=== PATIENT | male | born 1980 | race American Indian/Alaskan Native ===

== ENCOUNTER 2017-10-12 23:14 | Inpatient (IN) | payer SELFPAY ==
--- NOTE | 2017-10-13 05:22 | Cat Scan Report ---
FINAL REPORT EXAM: CT HEAD/BRAIN WO CON HISTORY: S/P fall with LOC TECHNIQUE: Routine axial imaging was obtained of the brain without IV contrast. FINDINGS: There is no evidence of acute stroke or hemorrhage. The ventricular system is appropriate in size and is symmetric. There are no extra-axial fluid collections. The visualized sinuses are clear. The calvarium appears intact. The mastoid air cells are well pneumatized. IMPRESSION: Within normal limits.
[2017-10-13] MEDS ORDERED: SUBLIMAZE IV ONE ×2 (08:39→09:30)
[2017-10-13] MEDS ORDERED: ZOFRAN IV ONE (08:39)
--- NOTE | 2017-10-13 08:56 | Emergency Department Report ---
HPI - General Chief Complaint: Fall Time Seen by Provider: 10/13/17 08:30 - HPI HPI: Room 6 The patient is a 37-year-old male presenting with a chief complaint of syncope. The patient states he was at [facility] with his brother when he began laughing. The patient states he awakened on the floor. The patient states his brother told him of his left Yonny down to his knees and then passed out falling backwards striking the back of his head. The brother reports the patient was only unconscious for a few seconds. The patient states when he awakened he had an occipital headache and neck stiffness addition to pain in his jaw. Patient denied ever having chest pain, shortness of breath or palpitations. The patient states the event occurred yesterday at approximately 13:00. Patient denies other complaints Location: Head, see above Duration: [See above] Quality: [See above] Severity: 03/06 Modifying factors: [see above] Context: [see above] Mode of transportation: [not driving] ED Past Medical Hx - Past Medical History Previous Medical History?: No - Surgical History Past Surgical History?: No - Family History Family history: no significant - Social History Smoking Status: Never Smoker Substance Use Type: None ED Review of Systems ROS: Stated complaint: HEAD INJURY FELL Other details as noted in HPI Respiratory: denies: shortness of breath Cardiovascular: denies: chest pain, palpitations Musculoskeletal: arthralgia, myalgia Neurological: headache Physical Exam - Physical Exam Vital Signs: Vital Signs 10/13/17 10/13/17 10/13/17 00:48 06:27 06:30 Temperature 98.4 F Pulse Rate 99 H 86 Respiratory 20 20 Rate Blood Pressure 120/81 122/85 Blood Pressure [Left] O2 Sat by Pulse 98 96 99 Oximetry 10/13/17 10/13/17 10/13/17 06:45 07:00 07:10 Temperature Pulse Rate 91 H 88 Respiratory 30 H 23 23 Rate Blood Pressure 122/85 117/79 Blood Pressure [Left] O2 Sat by Pulse 97 96 96 Oximetry 10/13/17 10/13/17 10/13/17 07:15 07:31 07:45 Temperature Pulse Rate 91 H 85 91 H Respiratory 21 18 20 Rate Blood Pressure 122/85 122/85 122/85 Blood Pressure [Left] O2 Sat by Pulse 96 84 69 L Oximetry 10/13/17 10/13/17 07:54 08:00 Temperature 98.0 F Pulse Rate 88 86 Respiratory 23 21 Rate Blood Pressure 107/64 Blood Pressure 117/79 [Left] O2 Sat by Pulse 96 94 Oximetry Physical Exam: GENERAL: The patient is well-developed well-nourished male lying on stretcher not appearing to be in acute distress. [] HEENT: Normocephalic. Subacute-appearing linear abrasion to the hospital. No active bleeding. Extraocular motions are intact. Patient has moist mucous membranes. NECK: Supple. No axial step offs. There is no adenopathy noted. CHEST/LUNGS: Clear to auscultation. There is no respiratory distress noted. HEART/CARDIOVASCULAR: Regular. There is no tachycardia. There is no gallop rub or murmur. ABDOMEN: Abdomen is soft, nontender. Patient has normal bowel sounds. There is no abdominal distention. SKIN: There is no rash. There is no edema. There is no diaphoresis. NEURO: The patient is awake, alert, and oriented. The patient is cooperative. The patient has no focal neurologic deficits. The patient has normal speech. Cranial nerves II through XII grossly intact, no drift. Moves all extremities well. Normal sensation throughout MUSCULOSKELETAL: There is no limitation range of motion. ED Course Vital Signs 10/13/17 10/13/17 10/13/17 00:48 06:27 06:30 Temperature 98.4 F Pulse Rate 99 H 86 Respiratory 20 20 Rate Blood Pressure 120/81 122/85 Blood Pressure [Left] O2 Sat by Pulse 98 96 99 Oximetry 10/13/17 10/13/17 10/13/17 06:45 07:00 07:10 Temperature Pulse Rate 91 H 88 Respiratory 30 H 23 23 Rate Blood Pressure 122/85 117/79 Blood Pressure [Left] O2 Sat by Pulse 97 96 96 Oximetry 10/13/17 10/13/17 10/13/17 07:15 07:31 07:45 Temperature Pulse Rate 91 H 85 91 H Respiratory 21 18 20 Rate Blood Pressure 122/85 122/85 122/85 Blood Pressure [Left] O2 Sat by Pulse 96 84 69 L Oximetry 10/13/17 10/13/17 07:54 08:00 Temperature 98.0 F Pulse Rate 88 86 Respiratory 23 21 Rate Blood Pressure 107/64 Blood Pressure 117/79 [Left] O2 Sat by Pulse 96 94 Oximetry ED Medical Decision Making - Lab Data Result diagrams: 10/13/17 08:44 10/13/17 08:44 Laboratory Tests 10/13/17 10/13/17 10/13/17 08:44 08:44 08:44 WBC 13.9 H RBC 5.53 H Hgb 15.0 Hct 46.3 H MCV 84 MCH 27 L MCHC 33 RDW 16.2 H Plt Count 372 Lymph % (Auto) 24.5 [place] % (Auto) 9.1 H Eos % (Auto) 5.4 H Baso % (Auto) 0.6 Lymph # 3.4 [place] # 1.3 H Eos # 0.7 H Baso # 0.1 Seg Neutrophils % 60.4 Seg Neutrophils # 8.4 H PT 14.0 INR 1.03 APTT 29.5 Sodium 143 Potassium 4.4 Chloride 99.1 Carbon Dioxide 28 Anion Gap 20 BUN 8 L Creatinine 1.2 Estimated GFR > 60 BUN/Creatinine Ratio 7 Glucose 98 Calcium 8.6 Total Creatine Kinase 286 H CK-MB (CK-2) 1.3 CK-MB (CK-2) Rel Index 0.4 Troponin T < 0.010 NT-Pro-B Natriuret Pep < 5 Plasma/Serum Alcohol 10/13/17 08:44 WBC RBC Hgb Hct MCV MCH MCHC RDW Plt Count Lymph % (Auto) [place] % (Auto) Eos % (Auto) Baso % (Auto) Lymph # [place] # Eos # Baso # Seg Neutrophils % Seg Neutrophils # PT INR APTT Sodium Potassium Chloride Carbon Dioxide Anion Gap BUN Creatinine Estimated GFR BUN/Creatinine Ratio Glucose Calcium Total Creatine Kinase CK-MB (CK-2) CK-MB (CK-2) Rel Index Troponin T NT-Pro-B Natriuret Pep Plasma/Serum Alcohol < 0.01 - EKG Data -: EKG Interpreted by Nv EKG shows normal: sinus rhythm Rate: normal - EKG Data When compared to previous EKG there are: previous EKG unavailable Interpretation: other (no ischemic changes seen) - Radiology Data Radiology results: report reviewed (CT head, CT cervical spine), image reviewed (CT head, CT cervical spine) CT SCAN OF THE CERVICAL SPINE: HISTORY: Neck pain after fall. TECHNIQUE: Contiguous 1.25 mm axial images of the cervical spine were obtained. Sagittal and coronal reformatted images. FINDINGS: There is reversal of the normal cervical lordosis which could represent muscular spasm or be secondary to positioning of the patient. There is normal height and alignment of the cervical vertebral bodies otherwise. The body, pedicles and posterior ligaments are intact. No evidence of fracture or subluxation is seen. The spinal canal appears normal. The prevertebral soft tissues appear normal. IMPRESSION: Reversal of the normal cervical lordosis, see above. No evidence for acute injury or significant degenerative change. Transcribed By: TTR Dictated By: ARIANA KELLER JR, MD Electronically Authenticated By: ARIANA KELLER JR, MD Signed Date/Time: 10/13/17930 DD/ 9 TD/TT: 10/13/17930 FINAL REPORT EXAM: CT HEAD/BRAIN WO CON HISTORY: S/P fall with LOC TECHNIQUE: Routine axial imaging was obtained of the brain without IV contrast. FINDINGS: There is no evidence of acute stroke or hemorrhage. The ventricular system is appropriate in size and is symmetric. There are no extra-axial fluid collections. The visualized sinuses are clear. The calvarium appears intact. The mastoid air cells are well pneumatized. IMPRESSION: Within normal limits. Transcribed By: RB Dictated By: DAVID LUX MD Electronically Authenticated By: DAVID LUX MD Signed Date/Time: 10/13/17118 DD/ 8 TD/TT: 10/13/17118 - Differential Diagnosis vasovagal syncope, dysrhythmia, syncope Critical care attestation.: If time is entered above; I have spent that time in minutes in the direct care of this critically ill patient, excluding procedure time. ED Disposition Clinical Impression: Syncope, Closed head injury Disposition: OP ADMIT IP TO THIS HOSP Is pt being admited?: Yes Does the pt Need Aspirin: Yes Condition: Fair Instructions: Syncope (ED) Referrals: CHARLEE TAYLOR MD [Primary Care Provider] - 3-5 Days Time of Disposition: 09:55 (hospitalist notified (Dr Jessica))
[2017-10-13 08:58] LABS: Basophils # (Auto) 0.1 K/mm3 (0.0-0.1); Basophils % (Auto) 0.6 % (0.0-1.8); Eosinophils # (Auto) 0.7 K/mm3 (0.0-0.4); Eosinophils % (Auto) 5.4 % (0.0-4.3); Hematocrit 46.3 % (35.5-45.6); Lymphocytes # (Auto) 3.4 K/mm3 (1.2-5.4); Lymphocytes % (Auto) 24.5 % (13.4-35.0); Mean Corpuscular HGB Conc 33 % (32-34); Mean Corpuscular Hemoglobin 27 pg (28-32); Mean Corpuscular Volume 84 fl (84-94); Monocytes # (Auto) 1.3 K/mm3 (0.0-0.8); Monocytes % (Auto) 9.1 % (0.0-7.3); Platelet Count 372 K/mm3 (140-440); Red Blood Count 5.53 M/mm3 (3.65-5.03); Red Cell Distribution Width 16.2 % (13.2-15.2)
[2017-10-13 09:12] LABS: INR 1.03 (0.87-1.13)
[2017-10-13 09:13] LABS: Partial Thromboplastin Time 29.5 Sec. (24.2-36.6)
[2017-10-13 09:20] LABS: Creatine Kinase MB 1.3 ng/mL (0.0-4.0)
[2017-10-13 09:21] LABS: BUN/Creatinine Ratio 7; Blood Urea Nitrogen 8 mg/dL (9-20); Calcium 8.6 mg/dL (8.4-10.2); Hemolysis Index 7
--- NOTE | 2017-10-13 09:38 | Cat Scan Report ---
CT SCAN OF THE CERVICAL SPINE: HISTORY: Neck pain after fall. TECHNIQUE: Contiguous 1.25 mm axial images of the cervical spine were obtained. Sagittal and coronal reformatted images. FINDINGS: There is reversal of the normal cervical lordosis which could represent muscular spasm or be secondary to positioning of the patient. There is normal height and alignment of the cervical vertebral bodies otherwise. The body, pedicles and posterior ligaments are intact. No evidence of fracture or subluxation is seen. The spinal canal appears normal. The prevertebral soft tissues appear normal. IMPRESSION: Reversal of the normal cervical lordosis, see above. No evidence for acute injury or significant degenerative change.
[2017-10-13] MEDS ORDERED: ASPIRIN PO ONE (09:56)
[2017-10-13] MEDS ORDERED: ZOFRAN ODT PO ONE (10:13)
[2017-10-13] MEDS ORDERED: NORCO 5/325 PO ONE (10:15)
[2017-10-13 11:21] VITALS: BP 125/73
== END 2017-10-13 11:23 | disposition left against medical advice (07) | DRG 312 ==
LOC: ED 23:14 → 4A 10-13 10:07
PROVIDERS: ADMIT Internal Medicine; ATTEND Internal Medicine
DX: R55 Syncope and collapse (principal); S09.90XA Unspecified injury of head, initial encounter; W18.39XA Other fall on same level, initial encounter; Z53.21 Procedure and treatment not carried out due to patient leaving prior to being seen by health care provider; Y93.89 Activity, other specified; Y92.89 Other specified places as the place of occurrence of the external cause; Y99.8 Other external cause status
CPT/HCPCS: 36415; 70450; 72125; 80048; 80320; 82550; 82553; 83880; 84484; 85025; 85610; 85730; 93005; 93010; G0480; J2405; J3010; Q0162